=== PATIENT | female | born 1950 | race Caucasian/White ===

== ENCOUNTER 2019-07-06 14:17 | Emergency (ER) | payer MEDICARE, SELFPAY ==
[2019-07-06 14:20] VITALS: BP 164/98; PULSE 74; RESP 17; TEMP 36.6; O2SAT 92; BMI 31.3
--- NOTE | 2019-07-06 14:29 | ED_ITS ---
Entered by Monique Rodríguez, acting as scribe for Julio Workman MD HPI - Dizziness General: Chief Complaint: Dizziness Stated Complaint: dizzy/vomiting Time Seen by Provider: 07/06/19 14:22 Source: patient Mode of arrival: ambulatory Limitations: no limitations History of Present Illness: HPI Narrative: 69 yo Female presents to ED with complaint of dizziness and nausea. Pt states that she woke up with these symptoms this morning. Pt states that she feels like she did when she had [place] Spotted Fever 5 years ago. Pt states that she was light headed and d vivi. Pt states that she didn't feel like she was going to pass out. Pt states that when she stands the dizziness gets worse. Pt states that she has thrown up twice today. MD elicited complaint: dizziness and lightheadedness Onset (ago): hour(s) Timing: awoke with symptoms Severity: mild Description: lightheadedness History of similar symptoms: No Exacerbating factors: movement/ambulation and standing Relieving factors: remaining still and keeping eyes closed Associated symptoms: Reports no associated symptoms, nausea and vomiting; Denies chest pain, chills or headache(s) Associated neuro symptoms: Reports no associated symptoms Review of Systems Const: Denies: fever, chills, body aches or change in appetite Eyes: Denies: blurry vision or eye discomfort ENMT: Denies: throat pain or dental pain Card: Denies: chest pain Resp: Denies: shortness of breath GI: Reports: nausea and vomiting : Denies: painful urination Musc: Denies: neck pain or back pain Skin/Breast: Denies: rash Neuro: Reports: dizziness; Denies: headache Psych: Denies: depression Nasim/Lymph: Denies: easy bruising All/Imm: Denies: hives PFSH ED PFSH: Social History Smoking and tobacco status: never smoked Physical Exam Const: COMMON NORMALS: no apparent distress, oriented x3 and healthy appearing HENMT: COMMON NORMALS: normocephalic and head/scalp atraumatic HEAD & SCALP: normocephalic and atraumatic Eye: COMMON NORMALS: PERRL and EOMs intact bilaterally PUPIL: Yes PERRL Neck/C-Spine: COMMON NORMALS: full ROM and supple Chest: COMMONS NORMALS: inspection of chest normal and palpation of chest normal Resp: COMMON NORMALS: normal respiratory effort, no retractions, no use of accessory muscles and clear to auscultation bilaterally AUSCULTATION: clear to auscultation bilaterally Cardio: COMMON NORMALS: regular rate, regular rhythm and no murmurs RATE: regular rate RHYTHM: regular rhythm GI: COMMON NORMALS: normal to inspection, nondistended, normoactive bowel sounds, soft to palpation, non-tender and no masses PALPATION: Yes soft Extremity: COMMON NORMALS: normal to inspection and full ROM Neuro: COMMON NORMALS: oriented x3, moves all extremities and no focal motor deficits Psych: COMMON NORMALS: mental status grossly normal, thought process normal and cooperative THOUGHT PROCESS: normal thought process Skin: COMMON NORMALS: no rashes or lesions noted and no wounds GENERAL SKIN EXAM: no rashes or lesions noted Course Vital Signs: Vital signs: Vital Signs Temperature 97.8 F 07/06/19 14:20 Pulse Rate 74 07/06/19 14:20 Respiratory Rate 17 07/06/19 14:20 Blood Pressure 164/98 07/06/19 14:20 Pulse Oximetry 92 07/06/19 14:20 MDM - Dizziness MDM Narrative: Medical decision making narrative: Patient presents here with vertigo that is likely peripheral in nature. Patient's MRI here shows no signs of a posterior stroke. She does still have some slight ataxia but has improved with Antivert. Will prescribe her Antivert along with Zofran for home. Her troponin here is negative and has no signs of cardiac cause. Patient has no signs of carotid dissection. She is stable for discharge and is to follow-up with her primary care doctor in 3 to 5 days return to the ER if worsening. Lab Data: Labs: Lab Results 07/06/19 07/06/19 07/06/19 Range/Units 14:47 14:47 14:47 WBC 9.0 (4.0-10.0) 10^3/ uL RBC 4.97 (4.1-5.3) 10^6/u L Hgb 14.1 (11.5-15.3) g/dL Hct 44.2 (37.0-47.0) % MCV 88.9 (81-99) fL MCH 28.4 (28.0-34.0) pg MCHC 31.9 (30.0-36.0) g/dL RDW 13.8 (12.1-15.1) % Plt Count 267 (130-400) 10^3/c mm MPV 10.5 H (7.4-10.4) fL Neut % (Auto) 78.0 % Lymph % (Auto) 14.3 % [place] % (Auto) 5.8 % Eos % (Auto) 1.2 % Baso % (Auto) 0.4 % Neut # (Auto) 7.0 (1.8-7.7) 10^3/u L Lymph # (Auto) 1.3 (0.8-4.8) 10^3/u L [place] # (Auto) 0.5 (0.2-0.9) 10^3/u L Eos # (Auto) 0.1 (0.0-0.8) 10^3/u L Baso # (Auto) 0.0 (0.0-0.1) 10^3/u L Nucleated RBC % (a uto) 0 % Nucleated RBCs # 0.0 /100WBC PT 14.00 H (10.5-13.3) SECO NDS INR 1.08 (0.8-1.2) Sodium 140 (136-145) mmol/L Potassium 4.0 (3.5-5.1) mmol/L Chloride 102 (98-107) mmol/L Carbon Dioxide 27 (22-29) mmol/L Anion Gap 15.0 (5-19) BUN 23 (8-23) mg/dL Creatinine 0.6 (0.5-0.9) mg/dL GFR Calculation 99.1 (90-130) mL/min Glucose 158 H (65-115) mg/dL Calcium 9.6 (8.5-10.5) mg/dL Total Bilirubin 0.3 (0.15-1.2) mg/dL AST 18 (0-32) U/L ALT 13 (0-33) U/L Alkaline Phosphata se 121 H (35-105) IU/L Troponin T Baselin e (0-10) ng/mL Troponin T 120 Min [place] (0-10) ng/mL Delta Troponin T (0-10) ABS# Total Protein 7.9 (6.6-8.7) g/dL Albumin 3.6 (3.5-5.2) g/dL Globulin 4.3 (1.3-4.6) g/dL 07/06/19 07/06/19 Range/Units 14:47 16:51 WBC (4.0-10.0) 10^3/ uL RBC (4.1-5.3) 10^6/u L Hgb (11.5-15.3) g/dL Hct (37.0-47.0) % MCV (81-99) fL MCH (28.0-34.0) pg MCHC (30.0-36.0) g/dL RDW (12.1-15.1) % Plt Count (130-400) 10^3/c mm MPV (7.4-10.4) fL Neut % (Auto) % Lymph % (Auto) % [place] % (Auto) % Eos % (Auto) % Baso % (Auto) % Neut # (Auto) (1.8-7.7) 10^3/u L Lymph # (Auto) (0.8-4.8) 10^3/u L [place] # (Auto) (0.2-0.9) 10^3/u L Eos # (Auto) (0.0-0.8) 10^3/u L Baso # (Auto) (0.0-0.1) 10^3/u L Nucleated RBC % (a uto) % Nucleated RBCs # /100WBC PT (10.5-13.3) SECO NDS INR (0.8-1.2) Sodium (136-145) mmol/L Potassium (3.5-5.1) mmol/L Chloride (98-107) mmol/L Carbon Dioxide (22-29) mmol/L Anion Gap (5-19) BUN (8-23) mg/dL Creatinine (0.5-0.9) mg/dL GFR Calculation (90-130) mL/min Glucose (65-115) mg/dL Calcium (8.5-10.5) mg/dL Total Bilirubin (0.15-1.2) mg/dL AST (0-32) U/L ALT (0-33) U/L Alkaline Phosphata se (35-105) IU/L Troponin T Baselin e 6 (0-10) ng/mL Troponin T 120 Min [place] 6.00 (0-10) ng/mL Delta Troponin T 0 (0-10) ABS# Total Protein (6.6-8.7) g/dL Albumin (3.5-5.2) g/dL Globulin (1.3-4.6) g/dL Imaging Data^: CXR: Radiologist's impression: [place] [address] XRay Report Signed Patient: Constanza Cortés #: [id number] : 1950cct#:[id number] Age/Sex: 69 / FADM Date: 07/06/19 Loc: ERRoom/Bed: Attending Dr: Ordering Provider/Ordering MD: Julio Workman MD Date of Service: 07/06/19 Procedure(s): XR chest 1V portable [id number] Accession Number(s): [id number] Report Number: [id number] WS: [id number] Portable AP upright chest, 07/06/2019 Clinical Data: dizzy Comparison: None. Findings: No nodules, masses or effusions are seen. The heart is normal. The pulmonary vascularity is not increased. No pneumonia or pneumothorax is seen. The aortic arch and descending aorta show tortuosity. XR/XR chest 1V portable [id number] Impression: Atherosclerosis. Dictated By:Pat Quintanilla MD Signed By:Pat Quintanilla MDSigned Date/Time:07/06/19 1510 DD/ 1509 CT Head: Radiologist's impression: [address] [address] [address] Scan Report Signed Patient: Constanza Cortés #: [id number] : 1950cct#:[id number] Age/Sex: 69 / FADM Date: 07/06/19 Loc: ERRoom/Bed: Attending Dr: Ordering Provider/Ordering MD: Julio Workman MD Date of Service: 07/06/19 Procedure(s): CT head wo con* [id number] Accession Number(s): [id number] Report Number: [id number] WS: [id number] CT HEAD NONCONTRAST HISTORY: dizzy TECHNIQUE: Contiguous axial imaging performed through the brain in 2.5 mm imaging. Bone and soft tissue windows. Sagittal and coronal reformats reviewed. All CT scans at [facility] use at least one of these dose optimization techniques: automated exposure control; mA and/or kV adjustment per patient size (includes targeted exams where dose is matched to clinical indication); or iterative reconstruction. DLP: 779.19 mGy.cm COMPARISON: None available. No acute intracranial hemorrhage, midline shift or mass effect. No atrophy or prior infarcts or herniation. Mild chronic microvascular ischemic disease. No prior infarct. Ventricles: Normal size with no hydrocephalus. No inferior displacement of cerebellar tonsils. Paranasal sinuses: As visualized are clear. Mastoid air cells: Well pneumatized. Calvarium and scalp: Hyperostosis frontalis interna. No fracture or bone destruction. CT/CT head wo con* [id number] IMPRESSION: 1. No acute intracranial hemorrhage or edema. 2. Mild chronic microvascular ischemic disease. Dictated By:Cristine Pope DO Signed By:Cristine Pope DOSigned Date/Time:07/06/19 1546 DD/ 1544 MRI Head: Radiologist's impression: [address] [address] Magnetic Resonance Report Signed Patient: Constanza Cortés #: [id number] : 1Acct#:[id number] Age/Sex: 69 / FADM Date: 07/06/19 Loc: ERRoom/Bed: Attending Dr: Ordering Provider/Ordering MD: Julio Workman MD Date of Service: 07/06/19 Procedure(s): MR head wo con* [id number] Accession Number(s): [id number] Report Number: [id number] PROCEDURE INFORMATION: Exam: MR Head Without Contrast Exam date and time: 07/06/2019 5:00 PM Age: 69 years old Clinical indication: Dizziness; Additional info: R/O stroke TECHNIQUE: Imaging protocol: MR of the head without contrast. COMPARISON: CT head wo con* [id number] 07/06/2019 3:49 PM FINDINGS: Brain: Mild atrophy and mild white matter chronic microvascular changes are noted. No hemorrhage or acute infarction is seen. Ventricles: Normal. No ventriculomegaly. Bones/joints: Unremarkable. Soft tissues: Unremarkable. Sinuses: Normal as visualized. No acute sinusitis. Mastoid air cells: Normal as visualized. No mastoid effusion. Orbits: Unremarkable. MR/MR head wo con* [id number] IMPRESSION: No acute intracranial abnormality Dictated By:Zen Pierce MD Signed By:Zen Pierce MDSigned Date/Time:07/06/191834 DD/ 32 EKG Data^: EKG 1: Attestation: I personally reviewed and interpreted this EKG as follows: EKG interpretation date: 07/06/19 EKG interpretation time: 16:40 Interpretation: Normal sinus rhythm heart rate [address] or T wave abnormalities QRS 91 QTC 427. Discharge Plan Discharge Patient Disposition: Home, Self-Care Clinical Impression: Vertigo Condition: Stable Prescriptions: New Zofran 4 mg tablet 4 mg PO QID PRN (Reason: nausea and vomiting) Qty: 14 RF: 0 meclizine 25 mg tablet 25 mg PO TID PRN (Reason: dizziness) Qty: 20 RF: 0 No Action ibuprofen 200 mg Tablet 200 mg PO Q6H PRN (Reason: Pain) RF: 0 Multiple Vitamin, Womens Tablet 1 tab PO DAILY RF: 0 Discharge Orders: Discharge Order (Routine); Ordered 07/06/19 Ordered By: Julio Workman Referrals: Justice Larios, EVENT MARKETING COORDINATOR [Primary Care Provider] - 4-7 days Discharge Diet: Advance as tolerated Discharge Activity: Resume usual activity Patient Instructions: Vertigo (ED), Dizziness (ED) Coding Level of Care Code ED Senior Rd Engineer for Chg Fwd Exam Comprehensive The documentation recorded by the Anne aguirre Carmen, accurately reflects the service I personally performed and the decisions made by Ji rodriguez Korby, MD Jul 06, 2019 14:17
--- NOTE | 2019-07-06 14:35 | CT_ITS ---
WS: [id number] CT HEAD NONCONTRAST HISTORY: dizzy TECHNIQUE: Contiguous axial imaging performed through the brain in 2.5 mm imaging. Bone and soft tiss ue windows. Sagittal and coronal reformats reviewed. All CT scans at [facility] use at ast one of these dose optimization techniques: automated exposure control; mA and/or kV adjustment pe r patient size (includes targeted exams where dose is matched to clinical indication); or iterative r econstruction. DLP: 779.19 mGy.cm COMPARISON: None available. No acute intracranial hemorrhage, midline shift or mass effect. No atrophy or prior infarcts or herniation. Mild chronic microvascular ischemic disease. No prior in farct. Ventricles: Normal size with no hydrocephalus. No inferior displacement of cerebellar tonsils. Paranasal sinuses: As visualized are clear. Mastoid air cells: Well pneumatized. Calvarium and scalp: Hyperostosis frontalis interna. No fracture or bone destruction. CT/CT head wo con* [id number] IMPRESSION: 1. No acute intracranial hemorrhage or edema. 2. Mild chronic microvascular ischemic disease.
--- NOTE | 2019-07-06 14:35 | XR_ITS ---
WS: [id number] Portable AP upright chest, 07/06/2019 Clinical Data: dizzy Comparison: None. Findings: No nodules, masses or effusions are seen. The heart is normal. The pulmonary vascularity is not increased. No pneumonia or pneumothorax is seen. The aortic arch and descending aorta show tortu osity. XR/XR chest 1V portable [id number] Impression: Atherosclerosis.
[2019-07-06 14:58] LABS: Basophils % 0.4 %; Eosinophils # 0.1 10^3/uL (0.0-0.8); Eosinophils % 1.2 %; Hematocrit 44.2 % (37.0-47.0); Hemoglobin 14.1 g/dL (11.5-15.3); Lymphocytes # 1.3 10^3/uL (0.8-4.8); Lymphocytes % 14.3 %; Mean Corpuscular HGB Conc 31.9 g/dL (30.0-36.0); Mean Corpuscular Hemoglobin 28.4 pg (28.0-34.0); Mean Corpuscular Volume 88.9 fL (81-99); Mean Platelet Volume 10.5 fL (7.4-10.4); Monocytes # 0.5 10^3/uL (0.2-0.9); Monocytes % 5.8 %; Nucleated Red Blood Cells % 0 %; Platelet Count 267 10^3/cmm (130-400); Red Blood Count 4.97 10^6/uL (4.1-5.3); Red Cell Distribution Width 13.8 % (12.1-15.1)
[2019-07-06 15:08] LABS: INR 1.08 (0.8-1.2)
[2019-07-06 15:12] LABS: Alanine Aminotransferase 13 U/L (0-33); Albumin Level 3.6 g/dL (3.5-5.2); Alkaline Phosphatase 121 IU/L (35-105); Aspartate Amino Transferase 18 U/L (0-32); Blood Urea Nitrogen 23 mg/dL (8-23); Calcium 9.6 mg/dL (8.5-10.5); Carbon Dioxide 27 mmol/L (22-29); Chloride 102 mmol/L (98-107); Globulin 4.3 g/dL (1.3-4.6); Glomerular Filtration Rate 99.1 mL/min (90-130); Glucose 158 mg/dL (65-115); Sodium 140 mmol/L (136-145); Total Bilirubin 0.3 mg/dL (0.15-1.2); Total Protein 7.9 g/dL (6.6-8.7)
[2019-07-06 15:13] LABS: Troponin(5th) Baseline 6 ng/mL (0-10)
[2019-07-06] MEDS: meclizine 25 mg tablet PO (15:24)
[2019-07-06] MEDS: ondansetron 2 mg/ML SDV 2 mL 4 MG IVP (15:30)
[2019-07-06] MEDS: sodium chloride 0.9% 1,000 ML 999 ML IV (15:55)
--- NOTE | 2019-07-06 16:20 | MRR_ITS ---
PROCEDURE INFORMATION: Exam: MR Head Without Contrast Exam date and time: 07/06/2019 5:00 PM Age: 69 years old Clinical indication: Dizziness; Additional info: R/O stroke TECHNIQUE: Imaging protocol: MR of the head without contrast. COMPARISON: CT head wo con* [id number] 07/06/2019 3:49 PM FINDINGS: Brain: Mild atrophy and mild white matter chronic microvascular changes are noted. No hemorrhage or acute infarction is seen. Ventricles: Normal. No ventriculomegaly. Bones/joints: Unremarkable. Soft tissues: Unremarkable. Sinuses: Normal as visualized. No acute sinusitis. Mastoid air cells: Normal as visualized. No mastoid effusion. Orbits: Unremarkable. MR/MR head wo con* [id number] IMPRESSION: No acute intracranial abnormality
--- NOTE | 2019-07-06 16:36 | ECG_ITS ---
Measurements Intervals [place] Rate: 62 P: 3 UT: 168 QRS: 9 QRSD: 91 T: 19 QT: 422 QTc: 430 SINUS RHYTHM LOW QRS VOLTAGE IN PRECORDIAL LEADS [QRS DEFLECTION < 1.0 mV IN CHEST LEADS] No previous ECG available for comparison Electronically Signed On 07-06-2019 21:24:18 EXECUTIVE CONSULTANT by Yvonne Gu M.D. [email or web address]
[2019-07-06 17:17] LABS: Troponin 5 2HR Delta 0 ABS# (0-10)
[2019-07-06] MEDS: promethazine 25 mg/mL SDV 1 mL 12.5 MG IM (18:19)
[2019-07-06 19:32] VITALS: BP 155/95; PULSE 74; RESP 18; O2SAT 97
--- NOTE | 2019-07-06 20:36 | ECG_ITS ---
Measurements Intervals [place] Rate: 64 P: 20 [place]: 169 QRS: 7 QRSD: 95 T: 29 QT: 413 QTc: 428 SINUS RHYTHM No previous ECG available for comparison Electronically Signed On 07-06-2019 21:24:26 ADJUNCT PHYSICS INSTRUCTOR by Yvonne Gu M.D. [email or web address]
== END 2019-07-06 19:23 | disposition home or self-care (01) ==
PROVIDERS: Emergency Provider Emergency Medicine; Family Provider Registered Nurse; PCP Registered Nurse
DX: R42 Dizziness and giddiness (principal)
CPT/HCPCS: 36415; 70450; 70551; 71045; 80053; 84484; 85025; 85610; 93005; 96360; 96361; 96374; 96375; 99283; 99284; J2405; J2550; J7030; J8597

== ENCOUNTER → 2019-12-11 15:59 | Outpatient (BNVA) | payer MEDICARE, SELFPAY | PROVIDERS: Family Provider Registered Nurse; PCP Registered Nurse; Visit Provider Nurse Practitioner Family | DX: R31.9 Hematuria, unspecified (principal); N30.00 Acute cystitis without hematuria | CPT/HCPCS: 80053; 87077; 87086; 87186 ==

== ENCOUNTER → 2019-12-19 10:06 | Outpatient (BNVA) | payer MEDICARE, SELFPAY | PROVIDERS: Family Provider Registered Nurse; PCP Registered Nurse; Visit Provider Nurse Practitioner Family | DX: R31.9 Hematuria, unspecified (principal) | CPT/HCPCS: 80053 ==